=== PATIENT | male | born 1980 ===

== ENCOUNTER → 2017-09-18 | Outpatient (REF) | payer OTHER ==
[2017-09-18 09:23] LABS: SEMEN APPEARANCE OPAQUE (OPAQUE); SEMEN VISCOSITY VISCOUS (LIQUID); SEMEN pH 8.5 (7.0-8.0); SPERM ABNORMAL FORMS OTHER (SPECIFIY); WBC CONCENTRATION <=1 M/ml (<=1 M/ml)
[2017-09-18 09:24] LABS: % NORMAL FORMS 4 % (>=4); IMMOTILITY 74 %; NON PROGRESSIVE MOTILITY (c) 4 %; PROGRESSIVE MOTILITY (a) 22 % (>=32); SPERM CONCENTRATION 142.2 M/ml (>=15.0); SPERM# 142.2 M/Ejac (>=39); TOTAL FUNCTIONAL 3.1 M/Ejac.; TOTAL MOTILITY 26 % (>=40); TOTAL PROGRESSIVE SPERM 30.8 M/Ejac.
== END ==
LOC: M LAB REF 09:15
DX: N46.9 Male infertility, unspecified (principal)

== ENCOUNTER → 2018-04-15 | Outpatient (REF) | payer OTHER ==
[2018-04-15 15:32] LABS: SEMEN APPEARANCE OPAQUE (OPAQUE); SEMEN VISCOSITY LIQUID (LIQUID); SEMEN VOLUME 0.9 ml (4.0-5.0); WBC CONCENTRATION <=1 M/ml (<=1 M/ml)
[2018-04-15 15:33] LABS: SPERM CONCENTRATION 112.8 M/ml (>=15.0)
[2018-04-15 15:35] LABS: NON PROGRESSIVE MOTILITY (c) 7 %; PROGRESSIVE MOTILITY (a) 18 % (>=32); TOTAL MOTILITY 25 % (>=40)
[2018-04-15 15:37] LABS: % NORMAL FORMS 4 % (>=4); IMMOTILITY 75 %; SPERM# 101.5 M/Ejac (>=39)
[2018-04-15 15:38] LABS: SPERM ABNORMAL FORMS WBC'S NOTED; TOTAL FUNCTIONAL 1.8 M/Ejac.
== END ==
LOC: M LAB REF 15:30
DX: N46.8 Other male infertility (principal)